=== PATIENT | female | born 1975 | race Two or more races ===

== ENCOUNTER 2021-06-01 19:15 | Emergency (ER) | payer MEDICAID, OTHER ==
[~2021-06-01] VITALS: Ht 154.9 cm; Wt 63.5 kg
[2021-06-01 19:15] VITALS: BP 152/85
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
--- NOTE | 2021-06-01 19:16 | NUR ---
PT BIBA TO ER BED 05
--- NOTE | 2021-06-01 19:17 | NUR ---
AMBULATED TO BR WITH ASSIST, UA OBTAINED
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
[2021-06-01] MEDS ORDERED: NACL 0.9% 1,000 ML IV ONE (19:35)
[2021-06-01 20:02] LABS: BASOPHILS % (AUTO) 0.7 % (0.0-2.0); EOSINOPHILS # (AUTO) 0.2 K/uL (0-0.4); EOSINOPHILS % (AUTO) 3.3 % (0.0-4.0); HEMATOCRIT 40.4 % (36-48); HEMOGLOBIN 13.5 g/dL (12.0-16.0); LYMPHOCYTES # (AUTO) 1.4 K/uL (2.5-16.5); MEAN CORPUSCULAR HEMOGLOBIN 29 pg (27-31); MEAN CORPUSCULAR HGB CONC 33 g/dL (33-37); MEAN CORPUSCULAR VOLUME 87.2 fL (80-94); MONOCYTES # (AUTO) 0.3 K/uL (0.8-1.0); MONOCYTES % (AUTO) 5.2 % (1.7-9.3); NEUTROPHILS # (AUTO) 4.6 K/uL (1.8-7.7); NEUTROPHILS % (AUTO) 69.8 % (42.2-75.2); PLATELET COUNT (AUTO) 328 K/uL (140-450); RED BLOOD CELL COUNT(AUTO) 4.64 MIL/uL (4.20-5.40); RED CELL DISTRIBUTION WIDTH 13.3 % (11.6-13.7); WHITE BLOOD COUNT (AUTO) 6.6 K/uL (4.8-10.8)
[2021-06-01 20:27] LABS: ALBUMIN 4.1 g/dL (3.4-5.0); ANION GAP 21.3 (8-16); ASPARTATE AMINOTRANSFERASE 40 U/L (15-37); CARBON DIOXIDE 17.7 mmol/L (21-32); CHLORIDE 113 mmol/L (98-107); CREATININE 0.7 mg/dL (0.6-1.3); GFR ARICAN-AMERICAN 115 mL/min (>90); GLUCOSE 95 mg/dL (74-106); SODIUM SERUM 149 mmol/L (136-145); TOTAL BILIRUBIN 0.2 mg/dL (0.0-1.0); UREA NITROGEN, BLOOD 10 mg/dL (7-18)
[2021-06-01 20:29] LABS: ACETAMINOPHEN < 0.5 ug/ml (10-30); SALICYLATE < 2.8 mg/dL (2.8-20.0)
[2021-06-01 20:31] LABS: BARBITURATE, URINE NEGATIVE ng/ml (NEG <=200); BENZODIAZEPINE, URINE NEGATIVE ng/mL (NEG <=200); CANNABINOID, URINE NEGATIVE ng/mL (NEG <=50); COCAINE, URINE NEGATIVE ng/mL (NEG <=300); OPIATE, URINE NEGATIVE ng/mL (NEG <=2000); PHENCYCLIDINE SCREEN,URINE NEGATIVE ng/mL (NEG <=25)
--- NOTE | 2021-06-01 21:00 | NUR ---
RESTING IN BED WITH EYES CLOSED, RESPIRATIONS REGULAR AND UNLABORED.
--- NOTE | 2021-06-02 00:30 | NUR ---
AWAKE, WATER GIVEN. PT STATES SHE IS FEELING BETTER AT THIS TIME
[2021-06-02] MEDS ORDERED: ONDANSETRON 4 MG/2 ML VIAL IVP ONE (03:15)
[2021-06-02] MEDS ORDERED: NACL 0.9% 1,000 ML IV ONE (03:15)
[2021-06-02] MEDS ORDERED: ACETAMINOPHEN EXTRA STRENGTH 500 MG TAB PO ONE (03:15)
[2021-06-02] MEDS ORDERED: POTASSIUM CHLORIDE 10 MEQ TABER PO ONE (03:30)
--- NOTE | 2021-06-02 03:45 | NUR ---
AWAKE, WATER GIVEN.
--- NOTE | 2021-06-02 03:55 | NUR ---
BRITTANYMG CALLED AND GIVEN [phone] ETA FOR TELE PSYCH
--- NOTE | 2021-06-02 06:16 | NUR ---
PT ON TABLET WITH NATALIE
--- NOTE | 2021-06-02 07:19 | NUR ---
RECEIVED REPORT KATHY RUST. TRANSFER OF CARE AT THIS TIME.
--- NOTE | 2021-06-02 07:23 | NUR ---
PT AWAKE, ALERT, HOB ELEVATED FOR COMFORT, VSS, WILL CONTINUE TO MONITOR.
--- NOTE | 2021-06-02 07:31 | NUR ---
SPOKE WITH PT , PT TO BE DISCHARGED PER PSYCHIATRIST. DR. FARIA MADE AWARE.
--- NOTE | 2021-06-02 07:34 | NUR ---
PT PROVIDED WITH BREAKFAST TRAY, PT CALM AND COOPERATIVE.
--- NOTE | 2021-06-02 07:47 | NUR ---
PT IS ALEX HAM [phone] [id number] [place], [place] [phone]
--- NOTE | 2021-06-02 08:02 | NUR ---
PT WITH PT AT BEDSIDE. PT BELONGINGS PROVIDED.
[2021-06-02 08:24] VITALS: BP 116/72
--- NOTE | 2021-06-02 08:24 | NUR ---
Patient discharged with v/s stable. Written and verbal after care instructions given and explained. Patient verbalized understanding. Ambulatory with steady gait. All questions addressed prior to discharge. Advised to follow up with PMD.
== END 2021-06-02 08:24 | disposition home or self-care (01) ==
LOC: MED 19:15
DX: T39.311A Poisoning by propionic acid derivatives, accidental (unintentional), initial encounter (principal); Z20.822 Contact with and (suspected) exposure to COVID-19; F10.129 Alcohol abuse with intoxication, unspecified; F32.9 Major depressive disorder, single episode, unspecified; E87.6 Hypokalemia; Z98.890 Other specified postprocedural states; Y92.89 Other specified places as the place of occurrence of the external cause
CPT/HCPCS: 36415; 80053; 80305; 81002; 81025; 84703; 85025; 87426; 96361; 96374; 99283; G0480; G0482; J2405; J7030; U0003